=== PATIENT | male | born 1985 | race Caucasian/White ===

== ENCOUNTER → 2020-07-08 07:52 | Outpatient (CLI) | payer OTHER, SELFPAY ==
--- NOTE | 2020-07-08 | DI.ECHO.S_ITS ---
Version: 1 Study ID: [id number] [place] [id number] Name: TRACI BEJARANO Study Date: 07/08/2020, 8: 00 AM : 1985 BP: 119 / 77 mmHg Gender: Male Height: 70 in Age: 34 Years Weight: 212 lb BSA: 2.14 mA? Ordering: FELISHA FISHER Referring: FELSIHA FISHER Clinician: Scarlett Wilkinson Reason For Study: DILATED CARDIOMYOPATHY History: Summary Statements Sinus bradycardia with heart rate of 48-50 bpm. Normal LV size and wall thickness; normal wall motion and low normal LV systolic function. EF is 50-55%. Normal chamber sizes. No significant valvular abnormalities. Compared to prior echo 01/2020 EF normalized. Afib is no longer present. Sinus bradycardia is new. EF is up from 20-25% to 50-55%. LA volume index fell from 48 to 30 ml/m2 RA volume index fell from 44 to 27 ml/m2 Procedure: A two-dimensional transthoracic echocardiogram with color flow and Doppler was performed. The study quality was technically adequate. Comparison is made with the echocardiogram of 01/22/2020. A contrast injection of Definity was performed to improve assessment of LV function. Left Ventricle: The estimated left ventricular end diastolic volume is 138 ml. The left ventricle is normal in size. There is normal left ventricular wall thickness. The ejection fraction is estimated to be 50-55%. Right Ventricle: The right ventricle is normal in size, thickness and function. Right ventricular systolic function is at the lower limits of normal. Atria: The left atrium grossly appears normal in size. Right atrial size is normal. There is no Doppler evidence for an interatrial shunt. Mitral Valve: The mitral valve is normal in structure and function. There is mild mitral regurgitation. Aortic Valve: The aortic valve is trileaflet. The aortic valve opens well. There is no aortic valve stenosis. No aortic regurgitation is present. Tricuspid Valve: The tricuspid valve is normal in structure and function. There is mild tricuspid regurgitation. The right ventricular systolic pressure is estimated to be at least 21 mmHg based on an estimated right atrial pressure of 3 mm Hg. Pulmonic Valve: The pulmonic valve leaflets are thin and pliable; valve motion is normal. There is trace pulmonic regurgitation. Great Vessels: The aortic root is normal size. The dimensions of the ascending aorta are normal. The IVC is of normal diameter and collapses greater than 50% with a sniff. This suggests a low right atrial pressure of 3 mm Hg. Pericardium/ Pleura: There is no pericardial effusion. There is no pleural effusion. 2D and M-Mode Measurements and Calculations LVIDd: 5.5 cm AoV Openin.23 cm LVIDs: 3.6 cm LVOT diam: 2.11 cm IVSd: 0.98 cm Ao root diam: 3.2 cm LVPWd: 0.79 cm asc Aorta Diam: 3.2 cm LV [address]ne. diameter/BSA (cm/m^2): 2.6 Ao Arch Diam (Prox Trans): 2.6 cm LV sys. diameter/BSA (cm/m^2): 1.70 EPSS: 1.15 cm RVD1 (basal): 3.0 cm IVC diam: 1.18 cm TAPSE: 1.61 cm LA A4 area: 22.9 knitted goods shaper? RA area: 19.0 knitted goods shaper? LA A2 area: 21.2 knitted goods shaper? RA long axis: 5.3 cm LA length (vol): 6.4 cm RA vol: 58.1 ml LA vol: 64.8 ml RA : 27.1 ml/mA? LA vol index: 30.3 ml/mA? Doppler Measurements and Calculations Ao V2 max: 159.5 cm/sec LVOT Max Jose Miguel: 106.0 cm/sec Ao V2 mean: 109.9 cm/sec LV V1 max P.5 mmHg Ao V2 VTI: 35.1 cm LV V1 VTI: 20.9 cm Ao max P.2 mmHg Ao mean P.6 mmHg DEANGELO(I,D): 2.08 knitted goods shaper? DEANGELO(V,D): 2.32 knitted goods shaper? DEANGELO indexed to BSA (cm^2/m^2): 0.97 sev ratio: 0.60 MV E max jose miguel: 84.0 cm/sec MV dec time: 0.27 sec MV A max jose miguel: 52.2 cm/sec MV E/A: 1.61 Med Peak E' Jose Miguel: 10.4 cm/sec Lat Peak E' Jose Miguel: 12.4 cm/sec E/e' average: 7.4 TR max jose miguel: 213.1 cm/sec PA mean P.04 mmHg TR max P.2 mmHg PA V2 max: 94.6 cm/sec Electronically signed by: Felisha Fisher M.D. 07/09/2020, 3: 59 AM
== END ==
PROVIDERS: PCP Family Medicine; Referring Provider Internal Medicine; Visit Provider Internal Medicine
DX: I42.0 Dilated cardiomyopathy (principal); R00.1 Bradycardia, unspecified
CPT/HCPCS: 93306

== ENCOUNTER → 2021-07-30 15:57 | Outpatient (CLI) | payer OTHER, SELFPAY ==
--- NOTE | 2021-07-30 16:01 | DI.ECHO.S_ITS ---
[facility] +---------+ : : [address] : [place] : : : : [id number] : : : : Phone: [phone]+ Echocardiogram Report + + :Name: TRACI BEJARANO Study Date: 07/30/2021 Height: 70 in : :[facility] ReadingLocation: Weight: 220 lb : : Gender: Male BSA: 2.2 m2 : :: 1985 Age: 35 yrs BP: 129/87 mmHg: :Reason For Study: CARDIOMYOPATHY : :Ordering Physician: PHILLIP, : :FELISHA Performed By: Scarlett Wilkinson : :Referring: FELISHA FISHER : + + Interpretation Summary This is a limited study to evaluate wall motion and EF. Normal sinus rhythm. Normal LV size and wall thickness. Low normal EF estimated at 50-55%. Compared to prior study 07/08/2020 LV is more dynamic Procedure: A two-dimensional transthoracic echocardiogram with color flow and Doppler was performed in limited views only to assess Cardiomyopathy. The study quality was technically adequate. A contrast injection of Definity was performed to improve assessment of LV function. The patient was in sinus rhythm with heart rates between 56-60 bpm during the exam. Left Ventricle: There is normal left ventricular wall thickness. The ejection fraction is estimated to be 50-55%. Right Ventricle: The right ventricle is grossly normal size. The right ventricular systolic function is normal. Great Vessels: The IVC is of normal diameter and collapses greater than 50% with a sniff. This suggests a low right atrial pressure of 3 mm Hg. Pericardium/ Pleura There is no pericardial effusion. There is no pleural effusion. MMode/2D Measurements & Calculations LVIDd: 4.9 cm IVC diam: 1.6 cm LVIDs: 3.3 cm FS: 32.8 % EPSS: 1.0 cm IVSd: 0.85 cm LVPWd: 0.98 cm LV wayne. diameter/BSA (cm/m^2): 2.2 LV sys. diameter/BSA (cm/m^2): 1.5 TAPSE: 2.0 cm Electronically signed by: Felisha Fisher M.D. on Reading Physician:08/04/2021 09:19 AM
== END ==
PROVIDERS: PCP Physician Assistant; Referring Provider Internal Medicine; Visit Provider Internal Medicine
DX: I42.8 Other cardiomyopathies (principal)
CPT/HCPCS: 93307; Q9957